=== PATIENT | male | born 1935 | race Caucasian/White ===

== ENCOUNTER 2020-10-21 09:41 | Inpatient (IN) | payer MEDICARE, BC ==
[~2020-10-21] VITALS: Ht 182.9 cm; Wt 105.9 kg
--- NOTE | 2020-10-21 10:08 | PHYS DOC ---
Past History Past Surgical History: Cholecystectomy, Other Additional Past Surgical Histo: R knee surgery, cataracts Adult General Chief Complaint Chief Complaint: NEAR SYCOPE HPI HPI Patient is a 85-year-old male presenting via EMS from PCP office for "not feeling well". Reports he woke up from his sleep " because I was just sweating and feeling claustrophobic". Denied any chest pain at that time, just states he got really anxious which caused him to sit up at the side of his bed for a while. Reports he was finally able to calm down and went back to sleep. Nonetheless episode concerned him so he went into his primary care physician office for follow-up on this and when he told her about his presenting symptoms she got concerned and called EMS for transport to our facility. PCP performed EKG that showed nonspecific ST wave elevations in V1 and V2, in setting of elderly patient with several comorbid conditions such as hypercholesterol and hypertension without known/prior diagnosis of CAD, PCP contacted EMS for transport to our facility. No prior history of provocative cardiac testing, no prior stents etc. Review of Systems Review of Systems Fourteen body systems of review of systems have been reviewed. See HPI for pertinent positives and negative responses, other weiner all other systems are negative, non-pertinent or non-contributory Physical Exam Physical Exam Constitutional: Well developed, well nourished, no acute distress, non-toxic appearance. HENT: Normocephalic, atraumatic, bilateral external ears normal, oropharynx moist, no oral exudates, nose normal. Eyes: PERRLA, EOMI, conjunctiva normal, no discharge. Neck: Normal range of motion, no tenderness, supple, no stridor. Cardiovascular: Heart rate regular, sinus rhythm, no murmurs rubs or gallops Lungs & Thorax: Bilateral breath sounds clear to auscultation Abdomen: Bowel sounds normal, soft, no tenderness, no masses, no pulsatile masses. Nonsurgical abdomen, no peritoneal signs Skin: Warm, dry, no erythema, no rash. Back: No tenderness, no CVA tenderness. Extremities: No tenderness, no cyanosis, no clubbing, ROM intact, no edema. Neurologic: Alert and oriented X 3, grossly normal motor & sensory function, no focal deficits noted. Psychologic: Affect normal, judgement normal, mood normal. Current Patient Data Vital Signs Vital Signs Date Time Temp Pulse Resp B/P (MAP) Pulse Ox O2 Delivery O2 Flow Rate FiO2 10/21/20 09:54 97.6 53 20 149/84 97 Room Air Lab Results Laboratory Tests Test 10/21/20 10:09 10/21/20 12:37 10/21/20 13:17 White Blood Count 5.8 x10^3/uL Red Blood Count 4.82 x10^6/uL Hemoglobin 15.0 g/dL Hematocrit 45.1 % Mean Corpuscular Volume 94 fL Mean Corpuscular Hemoglobin 31 pg Mean Corpuscular Hemoglobin Concent 33 g/dL Red Cell Distribution Width 13.5 % Platelet Count 159 x10^3/uL Neutrophils (%) (Auto) 65 % Lymphocytes (%) (Auto) 26 % Monocytes (%) (Auto) 8 % Eosinophils (%) (Auto) 1 % Basophils (%) (Auto) 1 % Neutrophils # (Auto) 3.7 x10^3uL Lymphocytes # (Auto) 1.5 x10^3/uL Monocytes # (Auto) 0.4 x10^3/uL Eosinophils # (Auto) 0.0 x10^3/uL Basophils # (Auto) 0.0 x10^3/uL Sodium Level 142 mmol/L Potassium Level 4.2 mmol/L Chloride Level 107 mmol/L Carbon Dioxide Level 30 mmol/L Anion Gap 5 Blood Urea Nitrogen 14 mg/dL Creatinine 1.0 mg/dL Estimated GFR (Cockcroft-Gault) 71.0 BUN/Creatinine Ratio 14 Glucose Level 120 mg/dL Calcium Level 8.2 mg/dL Magnesium Level 2.1 mg/dL Total Bilirubin 0.8 mg/dL Aspartate Amino Transf (AST/SGOT) 17 U/L Alanine Aminotransferase (ALT/SGPT) 21 U/L Alkaline Phosphatase 80 U/L Troponin I Quantitative 0.058 ng/mL 0.048 ng/mL VN-Olc-Q-Type Natriuretic Peptide 382 pg/mL Total Protein 6.1 g/dL Albumin 3.3 g/dL Albumin/Globulin Ratio 1.2 SARS-CoV-2 Antigen (Rapid) Negative Prothrombin Time 10.5 SEC Prothromb Time International Ratio 1.0 Activated Partial Thromboplast Time 53 SEC Current Medications Medications (Trade) Dose Ordered Sig/Jose Route PRN Reason Start Time Stop Time Status Last Admin Dose Admin Aspirin (Aspirin Chewable) 324 mg 1X ONCE PO 10/21/20 10:15 10/21/20 10:29 DC 10/21/20 10:37 Nitroglycerin (Nitrostat) 0.4 mg PRN Q5MIN PRN SL CHEST PAIN 10/21/20 11:15 Heparin Sodium/ Dextrose 250 ml @ 10 mls/hr CONT PRN IV SEE I/O RECORD 10/21/20 12:15 10/21/20 12:49 Heparin Sodium (Porcine) (Heparin Sodium) 4,000 unit 1X ONCE IV 10/21/20 12:15 10/21/20 12:16 DC 10/21/20 12:48 Heparin Sodium (Porcine) (Heparin Sodium) 2,650 unit PRN Q6HRS PRN IV FOR PTT LESS THAN 24 SECONDS 10/21/20 12:15 EKG EKG EKG ordered and interpreted by myself at 0955 hrs. as sinus rhythm at 52 bpm, prolonged SC interval at 246, prolonged QT at 486 otherwise unremarkable intervals, no axis deviation, T wave inversion noted in lead I and aVL, slight elevation in lead V1 and V2 without meeting definition of STEMI EKG ordered and interpreted by myself at 1045 hrs. as sinus rhythm at 61 bpm, prolonged SC interval at 234 otherwise unremarkable intervals, no axis deviation, persistent T wave inversion noted in lead I and aVL, no STEMI Radiology/Procedures Radiology/Procedures EXAM: CHEST 1 VIEW History: Chest pain COMPARISON: None available. TECHNIQUE: Single portable radiograph of the chest FINDINGS: The cardiac silhouette is unremarkable. The lungs are clear bilaterally. The costophrenic sulci are clear and well demarcated. The osseous structures and soft tissues are unremarkable. IMPRESSION: No acute cardiopulmonary findings. Electronically signed by: Wang Gray MD (10/21/2020 10:29 AM) [id number] Heart Score C/O Chest Pain: Yes HEART Score for Chest Pain: HEART Score for Chest Pain Response (Comments) Value History Highly Suspicious 2 ECG Nonspecific Repolarizatio 1 Age > 65 2 Risk Factors >3 Risk Factors or Hx CAD 2 Troponin >1-<3x Normal Limit 1 Total 8 Risk Factors: Risk Factors: DM, Current or recent (<one month) smoker, HTN, HLP, family history of CAD, obesity. Risk Scores: Risk Factors: DM, Current or recent (<one month) smoker, HTN, HLP, family history of CAD, obesity. Course & Med Decision Making Course & Med Decision Making ABCs unremarkable. 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 All questions and concerns addressed. Heparin drip started, x1 sublingual nitro, 324 mg aspirin administered and patient remained asymptomatic prior to ER transfer Critical Care Time This patient required critical care. Due to the fact that the patient required a significant amount of one on one physician - patient contact time, ordering and review of studies, arranging urgent treatment with development of a management plan, evaluation of patients response to treatment with frequent reassessments, and discussions with other providers this patient required 30 minutes of critical care time. Critical care time was indicated due to the inherent instability and/or potential for instability in this patient. The critical care time that is allocated to this patient is above and beyond any time spent on any other billable procedures performed on this patient. Dragon Disclaimer Dragon Disclaimer This electronic medical record was generated, in whole or in part, using a voice recognition dictation system. Departure Departure: Impression: Primary Impression: NSTEMI (non-ST elevated myocardial infarction) Disposition: 02 [facility]ORT [facility]M [facility] ([facility]) Admitting Physician: Other (dr paredes) Condition: STABLE Referrals: NAVID HERRMANN (PCP) LARRY FREGOSO DO Oct 21, 2020 10:08
[2020-10-21] MEDS ORDERED: ASPIRIN CHEWABLE 81 MG TABLET. PO ONE (10:15)
[2020-10-21 10:25] LABS: BASO % 1 % (0-3); EOS % 1 % (0-3); HEMATOCRIT 45.1 % (39.0-53.0); LYMPH # 1.5 x10^3/uL (1.0-4.8); LYMPH % 26 % (24-48); MEAN CORPUSCULAR HEMOGLOBIN 31 pg (25-35); MEAN CORPUSCULAR HGB CONC 33 g/dL (31-37); MEAN CORPUSCULAR VOLUME 94 fL (79-100); MONO # 0.4 x10^3/uL (0.0-1.1); MONO % 8 % (0-9); NEUT # 3.7 x10^3uL (1.8-7.7); NEUT % 65 % (31-73); PLATELET COUNT 159 x10^3/uL (140-400); RED BLOOD COUNT 4.82 x10^6/uL (4.30-5.70); RED CELL DISTRIBUTION WIDTH 13.5 % (11.5-14.5); WHITE BLOOD COUNT 5.8 x10^3/uL (4.0-11.0)
--- NOTE | 2020-10-21 10:27 | EKG ---
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
--- NOTE | 2020-10-21 10:31 | RAD ---
EXAM: CHEST 1 VIEW History: Chest pain COMPARISON: None available. TECHNIQUE: Single portable radiograph of the chest FINDINGS: The cardiac silhouette is unremarkable. The lungs are clear bilaterally. The costophrenic sulci are clear and well demarcated. The osseous structures and soft tissues are unremarkable. IMPRESSION: No acute cardiopulmonary findings. Electronically signed by: Wang Gray MD (10/21/2020 10:29 AM) [id number]
[2020-10-21 10:33] LABS: CALCIUM 8.2 mg/dL (8.5-10.1); POTASSIUM 4.2 mmol/L (3.5-5.1)
[2020-10-21 10:46] LABS: ALBUMIN 3.3 g/dL (3.4-5.0); ALBUMIN/GLOBULIN RATIO 1.2 (1.0-1.7); MAGNESIUM 2.1 mg/dL (1.8-2.4); TOTAL BILIRUBIN 0.8 mg/dL (0.2-1.0); TOTAL PROTEIN 6.1 g/dL (6.4-8.2)
--- NOTE | 2020-10-21 10:55 | EKG ---
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
[2020-10-21] MEDS ORDERED: NITROGLYCERIN SUBLINGUAL 0.4 MG BOTTLE OF 25. SL PRN ×2 (11:15→18:00)
[2020-10-21] MEDS ORDERED: HEPARIN for IV BOLUS 10,000 UNIT/10 ML VIAL. IV PRN (12:15)
[2020-10-21] MEDS ORDERED: HEPARIN for IV BOLUS 10,000 UNIT/10 ML VIAL. IV ONE (12:15)
[2020-10-21] MEDS ORDERED: HEPARIN 25,000UTS/250ML PREMIX 250 ML IV PRN (12:15)
--- NOTE | 2020-10-21 15:18 | EKG ---
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
[2020-10-21] MEDS ORDERED: ACETAMINOPHEN 325 MG TABLET PO PRN (18:00)
--- NOTE | 2020-10-21 18:44 | CONS ---
DATE OF CONSULTATION: 10/21/2020 REASON FOR CONSULTATION: Elevated troponin. HISTORY OF PRESENT ILLNESS: The patient is a pleasant 85-year-old man who was in his usual state of health, who presented to the ER at the request of his primary care physician. He apparently woke up with some feeling of claustrophobia. He did not have any specific angina, orthopnea or PND. He felt like the room was hot and turned on his AC, and went back to bed and upon waking up, felt that he has had a couple of these episodes over the last few days and ultimately was seen by his primary care physician who obtained an EKG and due to suggestion of some mild ST-T wave changes, she prompted him to go to the ER. Upon arrival to the ER, he was noted to have sinus rhythm with mild intraventricular conduction delay and nonspecific left bundle branch like changes with an elevated troponin. The patient reports that over the last few days he has not been taking his medications appropriately. He has been given nitroglycerin for management of his blood pressure. He denies any current chest pain, dyspnea, orthopnea or PND. No syncope or palpitations. At baseline, it is reported he has been able to mow his yard and go up and down stairs without any significant limitations. PAST MEDICAL HISTORY: 1. Borderline diabetes. 2. Hypertension. 3. Dyslipidemia. SOCIAL HISTORY: The patient lives with his . Denies any alcohol, tobacco, or illicit drug use. FAMILY HISTORY: Noncontributory. ALLERGIES: No known drug allergies. CURRENT CARDIOVASCULAR MEDICATIONS: Unknown. REVIEW OF SYSTEMS: Negative for 10 out of 14 systems reviewed, unless otherwise mentioned above in HPI. PHYSICAL EXAMINATION: VITAL SIGNS: Stable. HEAD AND NECK: Unremarkable. CARDIAC: Regular rate and rhythm without any murmurs, rubs or gallops. LUNGS: Clear to auscultation bilaterally. ABDOMEN: Soft, nontender, nondistended. EXTREMITIES: No clubbing, cyanosis or edema. NEUROLOGIC: No focal deficits. MUSCULOSKELETAL: No trauma. DIAGNOSTIC STUDIES: 1. EKG demonstrates sinus rhythm with intraventricular conduction delay. 2. Troponin is trivially elevated, but repeat cardiac enzymes are within normal limits. Chest x-ray is unremarkable. IMPRESSION: 1. Elevated troponin, likely type 2 non-ST elevation myocardial infarction. 2. Hypertension. 3. Dyslipidemia. 4. Atypical chest pain. RECOMMENDATIONS: 1. I had a long discussion with the patient, his and his daughter regarding various approaches to treatment. At this present time, his chest pain appears to be fairly atypical and given only a trivial troponin elevation with non-concerning EKG, I gave him the option of conservative management versus aggressive management. He prefers to continue conservative management. We will plan for admission with overnight monitoring to rule out any arrhythmias as a source of his problems. We will plan for an echocardiogram tomorrow. If his echocardiogram is unremarkable, we will plan for outpatient stress testing. Thank you for this consultation. Discussed with Dr. Almanzar. JUN/JOSEPH MANRIQUEZ: JUN/gemini TID: [id number]
[2020-10-21] MEDS ORDERED: COLE1TAB PO (19:54)
[2020-10-21] MEDS ORDERED: CHOL10004 PO (19:54)
[2020-10-21] MEDS ORDERED: DUTA0.5C PO (19:54)
[2020-10-21] MEDS ORDERED: TAMS0.4C97 PO (19:54)
[2020-10-21] MEDS ORDERED: EZET10TA20 PO (19:54)
--- NOTE | 2020-10-21 22:31 | NUR ---
The patient, LILLY GARRETT, 85 y/o, M admitted by CARMEN LANDEROS MD, was given written information regarding hospital policies, unit procedures and contact persons. Patient arrived on unit at 1855 via EMS from the ED. Bedside report given by LAWANDA Rodas. Patient is alert, oriented x4 and denies pain. Home medications entered into [facility] and started per Telephone order from Dr Landeros. Patient has bilateral hearing aides. Belongings with patient to include cell phone and clothing.
[2020-10-21 23:42] VITALS: BP 165/76
--- NOTE | 2020-10-22 04:37 | NUR ---
Patient is up adlib in his room. After he ate a box dinner he talked on his cell phone to his and family and then went to sleep. Patient has been up to bathroom during the night. Patient denies pain when asked, he is cooperative and pleasant. He states he has not had any further episodes of syncope, dizziness or diaphoresis since admission.
--- NOTE | 2020-10-22 08:19 | PDOC ---
ANY WILSON TREASURY ACCOUNTANT 10/22/20 0819: CARDIO Progress Notes Date & Time Date of Service DATE: 10/22/20 TIME: 08:13 Time of Evaluation 08:13 Subjective Notes No chest pain, shortness of breath, dizziness. Vitals Vitals Vital Signs Date Time Temp Pulse Resp B/P (MAP) Pulse Ox O2 Delivery O2 Flow Rate FiO2 10/21/20 23:42 98.0 72 17 165/76 (105) 93 Room Air Weight Weight [ ] Input and Output I.O. Intake and Output 10/22/20 07:00 Intake Total 360 ml Balance 360 ml Intake Oral 360 ml # Voids 3 Laboratory Labs Laboratory Tests Test 10/21/20 10:09 10/21/20 12:37 10/21/20 13:17 10/21/20 16:28 White Blood Count 5.8 x10^3/uL (4.0-11.0) Red Blood Count 4.82 x10^6/uL (4.30-5.70) Hemoglobin 15.0 g/dL (13.0-17.5) Hematocrit 45.1 % (39.0-53.0) Mean Corpuscular Volume 94 fL (79-100) Mean Corpuscular Hemoglobin 31 pg (25-35) Mean Corpuscular Hemoglobin Concent 33 g/dL (31-37) Red Cell Distribution Width 13.5 % (11.5-14.5) Platelet Count 159 x10^3/uL (140-400) Neutrophils (%) (Auto) 65 % (31-73) Lymphocytes (%) (Auto) 26 % (24-48) Monocytes (%) (Auto) 8 % (0-9) Eosinophils (%) (Auto) 1 % (0-3) Basophils (%) (Auto) 1 % (0-3) Neutrophils # (Auto) 3.7 x10^3uL (1.8-7.7) Lymphocytes # (Auto) 1.5 x10^3/uL (1.0-4.8) Monocytes # (Auto) 0.4 x10^3/uL (0.0-1.1) Eosinophils # (Auto) 0.0 x10^3/uL (0.0-0.7) Basophils # (Auto) 0.0 x10^3/uL (0.0-0.2) Sodium Level 142 mmol/L (136-145) Potassium Level 4.2 mmol/L (3.5-5.1) Chloride Level 107 mmol/L (98-107) Carbon Dioxide Level 30 mmol/L (21-32) Anion Gap 5 (6-14) Blood Urea Nitrogen 14 mg/dL (8-26) Creatinine 1.0 mg/dL (0.7-1.3) Estimated GFR (Cockcroft-Gault) 71.0 BUN/Creatinine Ratio 14 (6-20) Glucose Level 120 mg/dL (70-99) Calcium Level 8.2 mg/dL (8.5-10.1) Magnesium Level 2.1 mg/dL (1.8-2.4) Total Bilirubin 0.8 mg/dL (0.2-1.0) Aspartate Amino Transf (AST/SGOT) 17 U/L (15-37) Alanine Aminotransferase (ALT/SGPT) 21 U/L (16-63) Alkaline Phosphatase 80 U/L (46-116) Troponin I Quantitative 0.058 ng/mL (0-0.055) 0.048 ng/mL (0-0.055) 0.054 ng/mL (0-0.055) XF-Zng-U-Type Natriuretic Peptide 382 pg/mL (0-449) Total Protein 6.1 g/dL (6.4-8.2) Albumin 3.3 g/dL (3.4-5.0) Albumin/Globulin Ratio 1.2 (1.0-1.7) Coronavirus (COVID-19)(PCR) Negative (NEGATIVE) SARS-CoV-2 Antigen (Rapid) Negative (NEGATIVE) Prothrombin Time 10.5 SEC (9.4-11.4) Prothromb Time International Ratio 1.0 (0.9-1.1) Activated Partial Thromboplast Time 53 SEC (23-33) Physical Exams HEENT: Neck Supple W Full Motion Chest: Symmetric Lungs: Clear to Auscultation Heart: RRR Abdomen: Soft N/T Extremities: No Edema Neurology: alert, oriented, follow commands Assessment Assessment 1. Chest pain, atypical. 2. Trivial troponin elevation; highest 0.058 3. Hypertension; labile 4. Hyperlipidemia 5. LBBB; no previous EKG for comparison Recommendations Repeat troponin Lipids ASA therapy Echo to assess LV systolic function Plan outpatient ischemic evaluation unless unless significant troponin elevation or echo abnormalities is noted BRADEN LI MD 10/22/20 1707: CARDIO Progress Notes Plan Plan Patient seen and examined. 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 Echo wnl, outpt stress testing. ANY WILSON APRN Oct 22, 2020 08:19 BRADEN LI MD Oct 22, 2020 17:07
[2020-10-22] MEDS ORDERED: DUTASTERIDE 0.5 MG CAPSULE PO SCH (09:00)
[2020-10-22] MEDS ORDERED: COLESTIPOL HCL 1 GM TABLET. PO SCH (09:00)
[2020-10-22] MEDS ORDERED: TAMSULOSIN 0.4 MG CAP.ER.24H. PO SCH (09:00)
[2020-10-22] MEDS ORDERED: EZETIMIBE 10 MG TABLET PO SCH (09:00)
[2020-10-22] MEDS ORDERED: CHOLECALCIFEROL (VITAMIN D3) 1,000 UNIT TABLET PO SCH (09:00)
[2020-10-22 09:43] VITALS: BP 153/77
--- NOTE | 2020-10-22 11:21 | HP ---
ADMIT DATE: 10/21/2020 CHIEF COMPLAINT: Vague symptoms of anxiety and sweating. HISTORY OF PRESENT ILLNESS: The patient is a 85-year-old gentleman, retired, very healthy and active. He awoke from sleep. He had some feelings of sweating and feeling claustrophobic, very vague symptoms. No pain per se. Denied any chest pain or palpitation. He went to his primary care physician and told her about presenting symptoms. EMS was called. EKG showed nonspecific ST-T wave changes in V1 and V2. No other symptoms. He was admitted then with further evaluation. He was initially started on aspirin and heparin and was scheduled to go to [facility] and bed was not available due to the fact they are full. Dr. Dougherty saw him in consultation in the ED yesterday during rounds. He is admitted here for further evaluation, echocardiogram and subsequent serial enzymes. PAST MEDICAL HISTORY: Significant for hyperlipidemia. SOCIAL HISTORY: He is a nonsmoker, nondrinker. ALLERGIES: PENICILLIN, IODINE CONTRAST. CURRENT MEDICATIONS: Reviewed. He was on scheduled Colestid, Avodart, Zetia, Flomax, and vitamin D. FAMILY HISTORY: Noncontributory. 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 He lives with his . They have 8 children, 17 grandchildren and 21 great grandchildren. He is still fully active and gets around without any assistance. The rest of the detailed review of systems asked and turned to be negative. PHYSICAL EXAMINATION: GENERAL: When I saw him, this is a pleasant gentleman appearing younger than his stated age. VITAL SIGNS: His blood pressure was 153/77 mmHg, pulse is 70 and regular. He was afebrile, oxygen saturation 95% on room air. HEENT: Head is without trauma. Pupils are reactive. Sclerae nonicteric. Oropharynx is clear. NECK: Supple, no bruits identified. LUNGS: Good breath sounds. CARDIOVASCULAR: Regular heart tones. No gallops. ABDOMEN: Soft. EXTREMITIES: Without edema. NEUROLOGIC: Focally intact. PERTINENT LABORATORY STUDIES: His hemoglobin is 15.0 g/dL, white count 5800. Chemistry panel unremarkable. Creatinine 1.0 mg percent. The first troponin was slightly above our limits at 0.058. ASSESSMENT: 1. An 85-year-old gentleman with atypical symptoms suggestive of coronary ischemia. He was admitted for rule out. 2. Hyperlipidemia. 3. Vague symptoms of anxiety and claustrophobia. PLAN: 1. Admit to telemetry. 2. Serial cardiac enzymes. 3. Formal Cardiology consultation. Please refer to Dr. Dougherty's note. 4. Echocardiogram. 5. Subsequent enzymes and further procedures, pending results of cardiac enzymes. CANDACE DR: Valeria TID: [id number] CC: NAVID HERRMANN
--- NOTE | 2020-10-22 13:01 | NUR ---
NURSING NOTE PLAN IS FOR ECHO TO COME AT 3 OR 4 AND THEN DISCHARGE PT HOME TO FOLLOW UP OUTPT PER DR HO. LAND, RN.
[2020-10-22 13:15] VITALS: BP 155/71
[2020-10-22 13:19] VITALS: BP 143/69
[2020-10-22 13:20] VITALS: BP 147/73
[2020-10-22] MEDS ORDERED: LISINOPRIL 10 MG TABLET PO SCH (13:30)
[2020-10-22 14:42] VITALS: BP 147/73
--- NOTE | 2020-10-22 16:54 | NUR ---
NURSING NOTE PT OKAY TO DISCHARGE PER DR Vazquez AND DR HAYWARD, FOLLOW UP CARDIO OUTPT. START DAILY ASA 81 MG OTC. PT GIVEN WRITTEN AND VERBAL DISCHARGE INSTRUCTIONS. PT PICKED UP BY . LAWANDA LAND.
--- NOTE | 2020-10-22 21:05 | DS ---
DATE OF DISCHARGE: 10/22/2020 ATTENDING PHYSICIAN: Dr. Landeros. FINAL DISCHARGE DIAGNOSES: 1. Near syncope. 2. Anxiety attack. 3. Chest discomfort, coronary ischemia ruled out. 4. Hyperlipidemia. 5. Prostatism. HISTORY AND PHYSICAL: The patient is a very pleasant, active 85-year-old gentleman admitted to the ED with vague symptoms of coronary ischemia. He had nonspecific ST-T wave changes at the doctor's office. PHYSICAL EXAMINATION: Please see the dictated note. PERTINENT LABORATORY AND X-RAY STUDIES: The patient was seen in consultation by Cardiology services. He had serial enzymes drawn. CBC, chemistry panel unremarkable. The first troponin was 0.048, second one 0.06, third one was 0.05. These were barely above our limits for upper limits of normal. He had a normal CBC. COURSE IN THE HOSPITAL: The patient was seen in consultation by Cardiology services. They felt that it was noncardiac. They recommended a baby aspirin. They also wanted an echocardiogram. It was done in the afternoon of the second hospital. The patient really wanted to go home. Once again, we will have the results of the echocardiogram from Cardiology services. They will call him for outpatient further evaluation. The patient was then discharged from our hospital in stable condition with explicit drug and followup care. LAXMI DR: Valeria TID: [id number] CC: NAVID HERRMANN
[2020-10-23] MEDS ORDERED: ASPIRIN ENTERIC COATED 81 MG TABLET.DR. PO SCH (08:00)
--- NOTE | 2020-10-23 10:01 | CARD ---
MR#: [id number] Date of Study: 10/22/2020 Ordering Physician: ANY WILSON, Referring Physician: ANY WILSON, Tech: Asif Stanton [facility] APPROVED REPORT EXAM: Two-dimensional and M-mode echocardiogram with Doppler and color Doppler. Other Information Quality : AverageHR: 62bpm Rhythm : NSR INDICATION Syncope Mild troponin elevation RISK FACTORS Hypertension Hyperlipidemia 2D DIMENSIONS Left Atrium(2D)5.3 (1.6-4.0cm)IVSd1.7 (0.7-1.1cm) Aortic Root(2D)3.8 (2.0-3.7cm)LVDd5.0 (3.9-5.9cm) LVOT Diameter2.1 (1.8-2.4cm)PWd1.7 (0.7-1.1cm) LVDs2.6 (2.5-4.0cm)FS (%) 47.2 % SV91.3 mlLVEF(%)78.4 (>50%) Aortic Valve AoV Peak Enmanuel.130.1cm/sAoV VTI27.2cm AO Peak GR.6.8mmHgLVOT Peak Enmanuel.97.0cm/s LVOT VTI 23.06cmAO Mean GR.4mmHg ALIVIA (VMAX)2.55di4IEU (VTI)3.02cm2 AI P 1/2 Exal229ox Mitral Valve MV E Lthzhryk56.4cm/sMV E Peak Gr.3mmHg MV DECEL [id number] A Cgphlxqe35.2cm/s MV E Mean Gr.1mmHgE/A Ratio1.5 Pulmonary Valve PV Peak Oaymuqkg69.1cm/sPV Peak Grad.4mmHg Tricuspid Valve TR P. Eubcvemj331zy/sTR Peak Gr.29mmHg LEFT VENTRICLE The left ventricle is normal size. There is moderate concentric left ventricular hypertrophy. The lef t ventricular systolic function is normal. The ejection fraction is estimated at 55-60%. There is nor mal LV segmental wall motion. Transmitral Doppler flow pattern is Grade II-pseudonormal filling dynam ics. No left ventricle thrombus noted on this study. There is no ventricular septal defect visualized . There is no left ventricular aneurysm. There is no mass noted in the left ventricle. RIGHT VENTRICLE The right ventricle is normal size. There is normal right ventricular wall thickness. The right ventr icular systolic function is normal. ATRIA The left atrium is moderately dilated. The right atrium size is normal. The interatrial septum is int act with no evidence for an atrial septal defect or patent foramen ovale as noted on 2-D or Doppler i maging. AORTIC VALVE The aortic valve is trileaflet. The aortic valve is mildly sclerotic. Doppler and Color Flow revealed mild aortic regurgitation. There is no significant aortic valvular stenosis. There is no aortic valv ular vegetation. MITRAL VALVE The mitral valve is normal in structure and function. There is no evidence of mitral valve prolapse. There is no mitral valve stenosis. Doppler and Color-flow revealed trace to mild mitral regurgitation . TRICUSPID VALVE The tricuspid valve is normal in structure and function. Doppler and Color Flow revealed mild tricusp id regurgitation. There is no tricuspid valve prolapse or vegetation. There is no tricuspid valve rodrigo nosis. PULMONIC VALVE The pulmonary valve is normal in structure and function. Mild pulmonic regurgitation There is no pulm onic valvular stenosis. GREAT VESSELS The aortic root is normal in size. The ascending aorta is normal in size. The pulmonary artery is nor mal. The IVC is mildly dilated with 50% compression with inspiration. PERICARDIAL EFFUSION There is no pleural effusion. There is no evidence of significant pericardial effusion. Critical Notification Critical Value: No <Conclusion> The left ventricular systolic function is normal. The ejection fraction is estimated at 55-60%. There is normal LV segmental wall motion. Mild aortic regurgitation. Trace to mild mitral regurgitation. Mild tricuspid regurgitation. There is no evidence of significant pericardial effusion. Signed by : Sanya Jimenez, Electronically Approved : 10/23/2020 10:01:06
== END 2020-10-22 16:55 | disposition home or self-care (01) | DRG 312 ==
LOC: ER 09:54 → 1 SOUTH 18:05
PROVIDERS: ADMIT Hospitalist; ATTEND Hospitalist
DX: R55 Syncope and collapse (principal); F41.1 Generalized anxiety disorder; R07.89 Other chest pain; E78.5 Hyperlipidemia, unspecified; I10 Essential (primary) hypertension; I44.7 Left bundle-branch block, unspecified; Z20.822 Contact with and (suspected) exposure to COVID-19; R77.8 Other specified abnormalities of plasma proteins; N40.0 Benign prostatic hyperplasia without lower urinary tract symptoms; Z91.14 Patient's other noncompliance with medication regimen; Z90.49 Acquired absence of other specified parts of digestive tract; Z88.0 Allergy status to penicillin; Z88.8 Allergy status to other drugs, medicaments and biological substances; Z91.041 Radiographic dye allergy status
CPT/HCPCS: 36415; 71045; 80053; 80061; 83735; 83880; 84484; 85025; 85610; 85730; 87426; 93005; 93306; 96365; 96375; 99291; J1644; U0003

== ENCOUNTER → 2020-11-19 | Outpatient (CLI) | payer MEDICARE, BC ==
[2020-10-22 14:42] VITALS: BP 147/73
[~2020-11-19] MED LIST: CHOL10004 PO; COLE1TAB PO; DUTA0.5C PO; EZET10TA20 PO; REGADENOSON 0.4 MG/5 ML DISP.SYRIN. IV ONE; TAMS0.4C97 PO
--- NOTE | 2020-11-20 13:05 | RAD ---
MR#: [id number] Date of Study: 11/19/2020 Ordering Physician: BRADEN LI, Referring Physician: JOHANNE MURRELL Tech: LUIS ENRIQUE Martinez, DAVID ([place]) (N) APPROVED REPORT Test Indications: NO STRESS TEST WAS PERFORMED Nurse/Tech Notes NO STRESS PERFORMED, PT REUSED STUDY DUE TO BEING CLAUSTROPHOBIC Imaging Protocol IMAGE PROTOCOL: inj. only Rest: Stress: Viability: Radiopharm.Tc99m Sestamibi Dose10.6mCi Img Date 11/19/2020 Inj-Img [id number]. Rest Admin Site:IV - Left AntecubitalAdministrator: LUIS ENRIQUE Martinez, ARRT (R)(N) Conclusion 1. 1. 10.6 mCi of sestamibi was administered as per protocol. 2. 2. The patient was then unable to proceed with scans due to reported claustrophobia. Signed by : Steve Snyder MD Electronically Approved : 11/20/2020 13:04:58
== END ==
LOC: NM 08:14
PROVIDERS: ATTEND Internal Medicine Cardiovascular Disease
DX: R07.9 Chest pain, unspecified (principal)
CPT/HCPCS: A9500